=== PATIENT | male | born 1970 | race Caucasian/White ===

== ENCOUNTER 2016-06-09 07:36 | Emergency (ER) | payer OTHER ==
--- NOTE | ~2016-06-09 | CT71 ---
[facility] A Service [facility] RADIOLOGY TEXT RESULTS PATIENT: JAMES LEIGH LOCATION: SED : 70 UNIT #: [id number] AGE: [address]: El Petty MD SEX: M ORDER DR: [id number] [place] [id number] E MR#: [id number] Acc #: [id number] NAME: JAMES LEIGH. : 1970 SEX: M STUDY DATE/TIME: 06/09/2016 7:50 UNIT: SED ROOM: STUDY DESCRIPTION: CT Head Wo Contrast Attending Physician: El Petty M.D. Ordering Physician: El Petty M.D. Primary Care Physician: Kiley Goodman Aprn MEDICAL IMAGING REPORT This report is preliminary unless electronic signature is present. EXAM CT head without contrast 06/09/2016 HISTORY 45-year-old male with headache beginning this morning. History of prior brain surgery. COMPARISON CT head 04/25/2008 and 05/18/2013. TECHNIQUE Routine unenhanced axial images performed through the brain. This CT examination was performed with one or more of the following radiation dose reduction techniques: automatic exposure control, adjustment of mA and/or kV according to patient size, and iterative reconstruction. FINDINGS Stable postoperative changes noted in the right frontal lobe. No acute hemorrhage, infarction, mass lesion, or abnormal extraaxial fluid collection. No midline shift or focal mass effect. Ventricular system is normal in size and configuration. No acute bony abnormality. Right frontal craniotomy. Visualized paranasal sinuses and mastoid air cells are clear. IMPRESSION Stable postoperative changes right frontal lobe. No acute intracranial abnormality. Dictated by... Alessandro Michele M.D. [facility] A Service [facility] RADIOLOGY TEXT RESULTS PATIENT: JAMES LEIGH LOCATION: SED : 70 UNIT #: [id number] AGE: [address]: El Petty MD SEX: M ORDER DR: THIS IS AN ELECTRONICALLY VERIFIED REPORT Alessandro Michele M.D. at 06/11/2016 8:31 AM SOFI/galindo TD: 06/10/2016 08:56 JOB #: [id number] MEDICAL IMAGING REPORT Page 1 of 1
[~2016-06-09 07:36] MED LIST: AMITRIPTYLINE H75 MG PO; ASPIRIN ENTERI325 M1 DOB; ASPIRIN PO; ASPIRIN81 M1 PO; BACIT-POLYMYXI3.5 GM OP; CLINDAMYCIN HC300 MG PO; DEPAKOTE PO; DILANTIN KAPSE100 MG DOB; DILANTIN PO; HYDROCODON-ACE1 EAC7 PO; ISOSORBIDE MONO30 M1 PO; LISINOPRIL10 MG PO; PRAVASTATIN SOD40 MG PO; ST JOSEPH ASPIR81 M1 PO; VALPROIC ACID PO; VICODIN PO
== END 2016-06-09 09:40 | disposition home or self-care (01) ==
LOC: SED 07:36
DX: G44.209 Tension-type headache, unspecified, not intractable (principal)
CPT/HCPCS: 36415; 70450; 80185; 96361; 96374; 96375; 99284; J1100; J1200; J2765